=== PATIENT | female | born 1980 | race Caucasian/White ===

== ENCOUNTER 2020-05-24 12:53 | Outpatient (CLI) | payer OTHER, SELFPAY | END 2020-05-24 12:54 | disposition home or self-care (01) | LOC: ANHSURGERY 12:57 | PROVIDERS: PCP Internal Medicine; Visit Provider Obstetrics & Gynecology Gynecology | DX: Z01.818 Encounter for other preprocedural examination (principal); D25.9 Leiomyoma of uterus, unspecified | CPT/HCPCS: 36415; 86850; 86900; 86901 ==

== ENCOUNTER 2020-05-25 01:02 | Outpatient (CLI) | payer OTHER, SELFPAY ==
[2020-05-25 19:18] LABS: SARS-CoV-2 RNA PCR Negative
== END 2020-05-25 01:03 | disposition home or self-care (01) ==
LOC: ANHCOVIDDT 01:02
PROVIDERS: PCP Internal Medicine; Visit Provider Obstetrics & Gynecology Gynecology
DX: Z01.812 Encounter for preprocedural laboratory examination (principal); Z20.828 Contact with and (suspected) exposure to other viral communicable diseases
CPT/HCPCS: 87635; C9803; U0003

== ENCOUNTER 2020-05-28 10:22 | Inpatient (IN) | payer OTHER, SELFPAY ==
[2020-05-21 15:38] VITALS: BMI 43.0
[2020-05-28] VITALS (19 sets, daily range): BP systolic 116–135; BP diastolic 59–78; PULSE 69–103; RESP 11–20; TEMP 36.3–36.9; O2SAT 95–100
[2020-05-28] MEDS: LACTATED RINGERS 1,000 ML 30 ML IV CONT ×3 (06:55→10:35)
[2020-05-28] MEDS: KETOROLAC 15 MG/ML VIAL (*BKC) IV PUSH (06:58)
[2020-05-28] MEDS: ACETAMINOPHEN 500 MG TABLET 1000 MG PO (07:00)
--- NOTE | 2020-05-28 07:23 | PM.IMHP ---
H&P: HPI History of Present Illness Date/Time: 05/28/20 07:23 Chief complaint: Fibroid Uterus Narrative: Stephanie Reyes is a 39 year old female with heavy cycles. Patient was new to my office 04/24/20. On exam, mass noted to fill entire abdominal cavity (measured 32 cm as fundal height ). Pelvic u/s done and showed markedly enlarged fibroid uterus. Office hysteroscopy and biopsy showed benign results. Plan is to proceed with BARAK-BS. Discussed with patient vertical incision will be probably extended quite a bit past her umbilicus due to the size of the uterus. Risks of the surgery were discussed including infection, bleeding, injury to organs (joselito. ovaries, ureters, bowel, and bladder), DVT, and general anesthesia. Patient voiced understanding and agrees to proceed. [facility] Past Medical History Medical History (Updated 05/28/20 @ 07:29 by Rima Mcdonough MD) History of hysteroscopy (normal spontaneous vaginal delivery) x 3 Surgical History Surgical History (Updated 05/28/20 @ 07:28 by Rima Mcdonough MD) Hx laparoscopic cholecystectomy Family History Family History (Updated 12/29/18 @ 11:25 by DOCTOR UNKNOWN) Mother Hypertension Other Family history of gastrointestinal disorder Social History Social History Smoking status: Never smoker Alcohol intake: never Spiritual care concerns: No Meds Home Medications and Allergies Home Medications Medication Instructions Recorded Confirmed Type L. gasseri-B. bifidum-B longum 1 cap PO DAILY 05/21/20 05/21/20 History [facility]] cholecalciferol (vitamin D3) 125 mcg PO DAILY 05/21/20 05/21/20 History [Vitamin D3] ergocalciferol (vitamin D2) 1,250 mcg PO WEEKLY 05/21/20 05/21/20 History [Vitamin D2] Allergies Allergy/AdvReac Type Severity Reaction Status Date / Time No Known Allergies Allergy Unverified 05/28/20 07:30 Exam Const: General: no acute distress Resp: Auscultation: clear to auscultation bilaterally Cardio: Rate: regular rate Rhythm: regular rhythm GI: GI Palp: Yes Firmness to palpation present (GI) Percussion: Yes other (uterus to 32 cm fundal height ) : External Female Exam: normal external appearance Speculum Exam - Vagina: normal appearance of the vagina Speculum Exam - Cervix: normal appearance of the cervix Bimanual exam- vagina & uterus: enlarged (32 cm) Assessment and Plan Assessment and plan (1) Fibroid uterus: Code(s): D25.9 - Leiomyoma of uterus, unspecified Status: Acute Assessment and Plan: Plan to proceed with BARAK-BS.
--- NOTE | 2020-05-28 07:33 | P.PNAN_ITS ---
Anes - Initial Pre Proc Eval Procedure: Operation Date: 05/28/20 08:30 Proposed Procedures p Total Abdominal Hysterectomy With Bilateral Salpingectomy - Rima Mcdonough MD Date/Time: 05/28/20 07:33 Surgeon: Rima Mcdonough MD Pre Op Diagnosis: Fibroid Uterus Patient Data Age: 39 Gender: F Height: 1.52 m Weight: 96.41 kg Allergies Allergy/AdvReac Type Severity Reaction Status Date / Time No Known Allergies Allergy Unverified 05/28/20 07:30 Home Medications Medication Instructions Recorded Confirmed Type L. gasseri-B. bifidum-B longum 1 cap PO DAILY 05/21/20 05/28/20 History [[facility]] cholecalciferol (vitamin D3) 125 mcg PO DAILY 05/21/20 05/28/20 History [Vitamin D3] ergocalciferol (vitamin D2) 1,250 mcg PO WEEKLY 05/21/20 05/28/20 History [Vitamin D2] Patient hx anesthesia problems: none Family hx anesthesia problems: none [facility] Past Medical History Medical History (Updated 05/28/20 @ 07:29 by Rima Mcdonough MD) History of hysteroscopy (normal spontaneous vaginal delivery) x 3 Surgical History Surgical History (Updated 05/28/20 @ 07:28 by Rima Mcdonough MD) Hx laparoscopic cholecystectomy Family History Family History (Updated 12/29/18 @ 11:25 by DOCTOR UNKNOWN) Mother Hypertension Other Family history of gastrointestinal disorder Social History Social History Smoking status: Never smoker Alcohol intake: never Spiritual care concerns: No Anes - Eval Final PreProcedure Day of Procedure 05/28/20 07:33 Patient weight: morbidly obese Heart: regular rate and rhythm Lungs: clear to auscultation and normal air movement Airway: Mallampati scale class II Neurological: alert and oriented Last oral intake: >/= 8 hours ASA classification: III Emergent: no Anesthetic plan: proceed Anesthesia type and monitoring: general ETT and standard monitoring Informed Consent: The patient's anesthetic plan and its attendant risks and benefits were discussed with the patient/family/POA. Questions were solicited and answers provided to the satisfaction of the patient/family/POA.
[2020-05-28] MEDS: ceFAZolin 2 GM/D5W 50 ML 2 GM/50 ML BAG IVPB (08:14)
--- NOTE | 2020-05-28 09:56 | SUR.OPER ---
URINE:175cc
--- NOTE | 2020-05-28 09:57 | SUR.OPER ---
EBL:600cc
--- NOTE | 2020-05-28 10:05 | PM.PROC ---
Procedure Note - Detailed Date of procedure: 05/28/20 Pre-op diagnosis: Fibroid Uterus Post-op diagnosis: same Procedure performed: BARAK-BS Description of procedure: The patient is taken to the operating room and placed under general anesthesia in the dorsal supine position. She is prepped and draped in usual sterile fashion.A vertical skin incision is made from the umbilicus to the symphysis pubis in the midline and carried down the underlying layer of fascia. The fascia was nicked in the midline and extended superiorly and inferiorly. The peritoneum was tented and entered with Metzenbaum scissors. The incision is extended with blunt traction. The uterus is palpated and there is a large approximately 10cm fibroid in the patient's right upper quadrant we are unable to deliver the uterus through the incision. The uterine incision is extended around the umbilicus. The uterus is again attempted to be delivered through the incision and is again unsuccessful. The exit incision is extended approximately 5cm above the umbilicus and the specimen is able to be delivered through the incision. The bowel is packed away using moist laparotomy sponges. The [place] is placed. I performed the left side of the hysterectomy and Dr. Polk performed the right side of the hysterectomy. Starting on the left side the round ligaments are identified there is a fibroid within the round ligament. The 0 Vicryl suture is placed below the fibroid x2 the pedicle was suture ligated and transected. The anterior leaf of the broad ligament is incised. A window was created in the posterior leaf of the broad ligament. The tube is grasped with a [place]. Three pedicles are required to transect the utero-ovarian ligament each pedicle is doubly clamped transected and suture ligated with 0 Vicryl. Attention is then turned to the right side and the round ligament was doubly clamped transected and suture ligated with 0 Vicryl. The window was created in the posterior leaf of the broad ligament the tube is grasped with a [place]. Again 3 pedicles are required to transect the utero-ovarian ligament each pedicle is doubly clamped transected and suture ligated with 0 Vicryl. The uterine vessels on the right are skeletonized. The bladder flap is created using sharp and blunt dissection. The retractors placed anteriorly to help bladder flap back. The right uterine vessels are doubly clamped transected and suture ligated with 0 Vicryl. The attention was returned to the left side where the uterine vessels are doubly clamped transected and suture ligated with 0 Vicryl. The cardinal and uterosacral ligaments are serially clamped doubly, transected, and suture ligated with 0 Vicryl . The uterosacral ligaments were tagged for future use. The vaginal cuff is entered anteriorly with the scalpel. The vaginal cuff was grasped with Allis clamps as the specimen is amputated using Trino scissors. The vaginal cuff was closed using 0 Vicryl in a running locked fashion. Each angle was tied to the ipsilateral uterosacral ligament. Good hemostasis at the cuff is noted. The pelvis is irrigated and the right ovary is noted to have to bleeding vessels. These were clamped and suture ligated. The ovary was observed for good blood flow for several minutes. There was no change in the ovarian color and appeared to have good blood flow. The instruments and sponges are then removed. The fascia is grasped with [facility] is and closed using 0 PDS. The subcutaneous tissues are irrigated and noted to be hemostatic. Bleeding vessels had been previously cauterized at the beginning of the case. The skin is closed using nereyda. Sterile bandage was applied. Sponge instrument and needle counts are correct per the OR staff. Patient did receive Ancef prior to incision. Anesthesia: GETA Surgeon: MD Steve Wright MD Estimated blood loss (mL): 600 Drains: Yes ([place]) Packing: No Pathology: yes (uterus; bilateral tu
--- NOTE | 2020-05-28 10:18 | P.DS_ITS ---
DS: Admitting Diagnosis Admitting Diagnosis Admitting Diagnosis: Fibroid Uterus DS: Discharge Diagnosis Discharge Diagnosis (1) Fibroid uterus: Code(s): D25.9 - Leiomyoma of uterus, unspecified Status: Acute (2) S/P BRAAK (total abdominal hysterectomy): Code(s): Z90.710 - Acquired absence of both cervix and uterus Status: Acute DS: Summary Hospital Course Reason for hospitalization: post op care Hospital Course: patient is tolerating a regular diet, voiding, and ambulating Status at Discharge Functional status at discharge: independent ambulation Overall status at discharge: patient is progressing back to baseline Time Spent with Patient Time attestation: Total time spent providing and/or coordinating discharge services: DS: Data Data Completed and Pending Pending studies at discharge: Pending at discharge 05/28/20 09:37 Surgical [PTH] Routine Discharge Plan Discharge Attending physician on discharge: Rima Mcdonough Discharging Clinician: Rima Mcdonough Patient Disposition: Home, Self-Care Activity: may drive after 2 weeks and pelvic rest Diet: regular Wound Care Instructions: incision open to air Discharge Instructions: pelvic rest x [address] after 2wks no lifting >10 lbs for 6 wks may shower Bring steristrips and staple removal kit 1 week follow up appt. Patient Instructions: Hysterectomy (DC) Stand Alone Forms: General Discharge Instructions Follow-up/Referrals: Rima Mcdonough MD [Physician] - Other (10 days post op bring staple remover and steri-strips with her to appointment) Discharge Medications: New hydrocodone-acetaminophen 5-325 mg Tablet 1 tab PO Q3H PRN (Reason: Pain Rated 5 Or Less) Qty: 30 RF: 0 ibuprofen 600 mg Tablet 600 mg PO Q6H PRN (Reason: Cramping) Qty: 60 RF: 0 Continued ergocalciferol (vitamin D2) [Vitamin D2] 1,250 mcg (50,000 unit) Capsule 1,250 mcg PO WEEKLY RF: 0 cholecalciferol (vitamin D3) [Vitamin D3] 125 mcg (5,000 unit) Tablet 125 mcg PO DAILY RF: 0 [employer] 1.5 billion cell Capsule 1 cap PO DAILY RF: 0 Date of admission: 05/28/20 10:22 Primary Care Provider: GilbertoLeonard Admitting Provider: Rima Mcdonough Discharge Date/Time: 05/30/20 16:11 Attending physician on admission: Steve Polk
--- NOTE | 2020-05-28 11:59 | OBPPTRN ---
Patient transferred to room 289 per bed. Oriented to room and surroundings. Patient verbalizes understanding.
[2020-05-28] MEDS: DEXTROSE 5%/LACTATED RINGERS 1,000 ML 125 ML IV CONT ×2 (12:21→19:45)
[2020-05-29] MEDS: KETOROLAC 30 MG/ML VIAL (*BKC) IV PUSH ×2 (00:08→08:56)
[2020-05-29 04:35] VITALS: BP 106/57; PULSE 79; RESP 14; TEMP 36.8; O2SAT 99
[2020-05-29 04:40] VITALS: RESP 14; O2SAT 99
[2020-05-29 05:31] LABS: Basophils Percent Auto 0.2 % (0.2-1.2); Eosinophils Percent Auto 0.3 % (0-4.4); Hematocrit 28.4 % (37.0-47.0); Hemoglobin 9.3 g/dL (12.0-15.0); Immature Granulocyte Absolute 0.03 K/mm3 (0.00-0.031); Immature Granulocyte Percent A 0.3 % (0-0.5); Lymphocytes Percent Auto 23.1 % (18.3-44.2); Mean Corpuscular HGB Conc 32.7 g/dl (32-36); Mean Corpuscular Hemoglobin 26.9 pg (26-34); Mean Corpuscular Volume 82.1 fl (80-100); Mean Platelet Volume 10.4 fl (7.4-10.4); Monocytes Absolute Auto 0.8 K/mm3 (0.1-0.6); Monocytes Percent Auto 8.2 % (2.6-8.5); Neutrophils Absolute Auto 6.5 K/mm3 (1.3-6.7); Neutrophils Percent Auto 67.9 % (45.5-73.1); Platelet Count Result 242 k/mm3 (150-375); Red Blood Count 3.46 M/mm3 (4.2-5.4); Red Cell Distribution Width 13.2 % (11.5-14.5); White Blood Count 9.5 K/mm3 (4.5-10.0)
--- NOTE | 2020-05-29 08:04 | P.PNAN_ITS ---
Anes - Prog Note Post-Op Date/Time: 05/29/20 08:04 Cardiovascular status: normal Respiratory status: normal Airway patency: baseline Mental status: baseline Post-Op hydration status: normal Vital Signs: Last Vital Signs Temp 36.8 C 05/29/20 04:35 Pulse 79 05/29/20 04:35 Resp 14 05/29/20 04:40 BP 106/57 L 05/29/20 04:35 Pulse Ox 99 05/29/20 04:40 I/O: Intake & Output 05/28/20 05/29/20 05/29/20 23:59 07:59 15:59 Intake Total 1335.25 1099.00 Output Total 675 250 Balance 660.25 849.00 Laboratory Tests 05/29/20 05:10 05/29/20 05:10 WBC 9.5 RBC 3.46 L Hgb 9.3 L Hct 28.4 L MCV 82.1 MCH 26.9 MCHC 32.7 RDW 13.2 Plt Count 242 MPV 10.4 Immature Gran % (Auto) 0.3 Neut % (Auto) 67.9 Lymph % (Auto) 23.1 [place] % (Auto) 8.2 Eos % (Auto) 0.3 Baso % (Auto) 0.2 Lymph # (Auto) 2.20 [place] # (Auto) 0.8 H Eos # (Auto) 0.0 Baso # (Auto) 0.0 Abs Immat Gran (auto) 0.03 Absolute Neuts (auto) 6.5 Absolute Nucleated RBC 0.0 Nucleated RBC % 0.0 Post-procedural complaints: none Patient Feedback: Patient satisfied with anesthetic care.
[2020-05-29 08:20] VITALS: BP 112/64; PULSE 73; RESP 18; TEMP 37.1; O2SAT 95
--- NOTE | 2020-05-29 08:58 | PM.GYNPNOP ---
MAINTENANCE SHOP TECHNICIAN - A/P Postoperative Procedures: Procedures Operation Date: 05/28/20 08:30 Actual Procedures Side Surgeon p Total Abdominal Hysterectomy With Bilateral Salpingectomy Bilateral Riam Mcdonough MD Postoperative day: 1 Postoperative status: doing well Postoperative plan: routine post-op care, ambulate, advance diet and other (still on SALES SERVICE PROFESSIONAL so will calculate oral pain med needs tomorrow) Time Spent With Patient Time: Total time spent is greater than 50% in coordination of care (as documented) at patient's floor/unit and/or counseling patient: Time with patient: less than 15 minutes MAINTENANCE SHOP TECHNICIAN- PN:Subj Post-Op Subjective Date/time seen: 05/29/20 08:58 Subjective: patient reports feeling better and pain is well controlled Exam GI: Other: bandage removed inc c/d/i small bruising at base MAINTENANCE SHOP TECHNICIAN - PN: Obj Data Vital Signs Vital Signs: Vital Signs - 24 hr 05/28/20 10:10 05/28/20 10:25 05/28/20 10:40 Temperature 97.3 F L Pulse Rate 75 83 81 Respiratory Rate 12 14 12 Blood Pressure 119/63 130/74 121/69 Pulse Oximetry 98 98 98 05/28/20 10:55 05/28/20 11:10 05/28/20 11:25 Temperature Pulse Rate 80 77 79 Respiratory Rate 12 11 L 11 L Blood Pressure 120/59 L 127/71 126/78 Pulse Oximetry 96 95 95 05/28/20 11:45 05/28/20 12:22 05/28/20 12:30 Temperature 97.9 F Pulse Rate 81 69 Respiratory Rate 16 18 16 Blood Pressure 125/75 121/65 Pulse Oximetry 97 97 98 05/28/20 13:00 05/28/20 13:30 05/28/20 14:00 Temperature Pulse Rate 78 74 77 Respiratory Rate 16 18 18 Blood Pressure 124/64 123/74 119/73 Pulse Oximetry 99 100 97 05/28/20 14:20 05/28/20 15:00 05/28/20 15:20 Temperature Pulse Rate 79 Respiratory Rate 18 20 18 Blood Pressure 116/70 Pulse Oximetry 98 98 98 05/28/20 16:20 05/28/20 19:15 05/28/20 23:15 Temperature 98.1 F 98.5 F Pulse Rate 86 103 H Respiratory Rate 18 15 14 Blood Pressure 120/75 133/75 Pulse Oximetry 97 98 98 05/29/20 04:35 05/29/20 04:40 Temperature 98.2 F Pulse Rate 79 Respiratory Rate 14 14 Blood Pressure 106/57 L Pulse Oximetry 99 99 Intake/Output Intake/Output: Intake & Output 05/26/20 05/27/20 05/28/20 05/29/20 23:59 23:59 23:59 23:59 Intake Total 2935.25 1099.00 Output Total 735 250 Balance 2200.25 849.00 Meds/Results Medications: Active Medications Generic Name Dose Route Start Last Admin Trade Name Freq PRN Reason Stop Dose Admin Hydrocodone Bitart/Acetaminophen 1 tab 05/28/20 10:22 [place] 5-325 Mg PO Q3H PRN Pain Rated 5 or Less Hydrocodone Bitart/Acetaminophen 1 tab 05/28/20 10:22 05/29/20 04:44 [place] 10-325 Mg PO 1 tab Q3H PRN Administration Pain Rated 6 or Greater Dextrose/Lactated Ringer's 1,000 mls @ 125 mls/hr 05/28/20 10:25 05/29/20 04:00 Dextrose 5%/Lactated Ringers IV CONT Infused .Q8H DORY Infusion Ibuprofen 600 mg 05/28/20 10:22 Motrin PO Q6H PRN Cramping Ketorolac Tromethamine 30 mg 05/28/20 10:22 05/29/20 00:08 Toradol Inj IV PUSH 06/02/20 10:23 30 mg Q6H PRN Administration Pain Rated 4-6 Ondansetron HCl 4 mg 05/28/20 10:22 Zofran Inj IV PUSH Q6H PRN Nausea Simethicone 80 mg 05/28/20 10:22 Mylicon PO Q2H PRN Gas Labs CBC & Chem 7: 05/29/20 05:10 Labs: Laboratory Results - last 24 hr 05/29/20 05:10 WBC 9.5 RBC 3.46 L Hgb 9.3 L Hct 28.4 L MCV 82.1 MCH 26.9 MCHC 32.7 RDW 13.2 Plt Count 242 MPV 10.4 Immature Gran % (Auto) 0.3 Neut % (Auto) 67.9 Lymph % (Auto) 23.1 [place] % (Auto) 8.2 Eos % (Auto) 0.3 Baso % (Auto) 0.2 Lymph # (Auto) 2.20 [place] # (Auto) 0.8 H Eos # (Auto) 0.0 Baso # (Auto) 0.0 Abs Immat Gran (auto) 0.03 Absolute Neuts (auto) 6.5 Absolute Nucleated RBC 0.0 Nucleated RBC % 0.0
[2020-05-29] MEDS: IBUPROFEN 600 MG TABLET PO ×2 (14:25→20:06)
[2020-05-29 15:30] VITALS: BP 121/66; PULSE 79; RESP 16; TEMP 36.6; O2SAT 99
[2020-05-29 20:05] VITALS: BP 122/67; PULSE 88; RESP 16; TEMP 36.6; O2SAT 99
[2020-05-30 09:15] VITALS: BP 123/79; PULSE 79; RESP 18; TEMP 36.8; O2SAT 99
--- NOTE | 2020-05-30 10:43 | PM.GYNPNOP ---
BANQUET WAITER/WAITRESS - A/P Assessment and plan (1) S/P BARAK (total abdominal hysterectomy): Code(s): Z90.710 - Acquired absence of both cervix and uterus Status: Acute Assessment and Plan: will d/c home with prn pain meds. f/u 1 week for incision check. Postoperative Procedures: Procedures Operation Date: 05/28/20 08:30 Actual Procedures Side Surgeon p Total Abdominal Hysterectomy With Bilateral Salpingectomy Bilateral Rima Mcdonough MD Time Spent With Patient Time: Total time spent is greater than 50% in coordination of care (as documented) at patient's floor/unit and/or counseling patient: Time with patient: less than 15 minutes BANQUET WAITER/WAITRESS- PN:Subj Post-Op Subjective Date/time seen: 05/30/20 10:43 Patient doing well. some pain this am no meds yet. tolerating diet positive flatus patient ambulating well and pain controlled with meds. Exam GI: Other: incision clean dry and intact. Ecchymosis present BANQUET WAITER/WAITRESS - PN: Obj Data Vital Signs Vital Signs: Vital Signs - 24 hr 05/29/20 15:30 05/29/20 20:05 05/30/20 09:15 Temperature 36.6 C 36.6 C 36.8 C Pulse Rate 79 88 79 Respiratory Rate 16 16 18 Blood Pressure 121/66 122/67 123/79 Pulse Oximetry 99 99 99 Intake/Output Intake/Output: Intake & Output 05/27/20 05/28/20 05/29/20 05/30/20 23:59 23:59 23:59 23:59 Intake Total 2935.25 1739.00 Output Total 735 770 Balance 2200.25 969.00 Meds/Results Medications: Active Medications Generic Name Dose Route Start Last Admin Trade Name Freq PRN Reason Stop Dose Admin Hydrocodone Bitart/Acetaminophen 1 tab 05/28/20 10:22 05/29/20 20:06 [place] 5-325 Mg PO 1 tab Q3H PRN Administration Pain Rated 5 or Less Hydrocodone Bitart/Acetaminophen 1 tab 05/28/20 10:22 05/30/20 09:04 [place] 10-325 Mg PO 1 tab Q3H PRN Administration Pain Rated 6 or Greater Ibuprofen 600 mg 05/28/20 10:22 05/29/20 20:06 Motrin PO 600 mg Q6H PRN Administration Cramping Ketorolac Tromethamine 30 mg 05/28/20 10:22 05/29/20 08:56 Toradol Inj IV PUSH 06/02/20 10:23 30 mg Q6H PRN Administration Pain Rated 4-6 Ondansetron HCl 4 mg 05/28/20 10:22 Zofran Inj IV PUSH Q6H PRN Nausea Simethicone 80 mg 05/28/20 10:22 Mylicon PO Q2H PRN Gas Labs CBC & Chem 7: 05/29/20 05:10
[2020-05-30] MEDS: SIMETHICONE 80 MG TAB.CHEW PO (13:28)
[2020-05-30] MEDS: IBUPROFEN 600 MG TABLET PO (13:28)
== END 2020-05-30 16:11 | disposition home or self-care (01) | DRG 742 ==
LOC: ANHOB2 11:23
PROVIDERS: Admitting Provider Obstetrics & Gynecology Gynecology; PCP Internal Medicine; Visit Provider Obstetrics & Gynecology
PROC: 0UT94ZZ Resection of Uterus, Percutaneous Endoscopic Approach (ICD-10-PCS; principal; 2020-05-28 08:30)
DX: D25.9 Leiomyoma of uterus, unspecified (principal); Z68.41 Body mass index [BMI] 40.0-44.9, adult; Z90.49 Acquired absence of other specified parts of digestive tract; E66.01 Morbid (severe) obesity due to excess calories
CPT/HCPCS: 36415; 85025; 88307; A9270; J0690; J1100; J1170; J1885; J2250; J2405; J2704; J2710; J3010; J7120; J7121

== ENCOUNTER 2023-08-29 12:05 | Emergency (ER) | payer BC, SELFPAY ==
[2023-08-29 12:25] VITALS: BP 131/97; PULSE 85; RESP 16; TEMP 37; O2SAT 99
--- NOTE | 2023-08-29 12:27 | ED.URI ---
HPI - URI/Sore Throat General Chief Complaint: Upper Respiratory Infection Stated Complaint: cough Time Seen by Provider: 08/29/23 12:27 Source: patient, RN notes reviewed and old records reviewed Mode of arrival: ambulatory Limitations: no limitations History of Present Illness HPI Narrative: 42-year-old female presents to [facility] with complete scratchy throat and cough that started on Thursday. Patient states sore throat is mild but cough is worsening. Patient denies fevers shortness of breath, headaches, myalgia. Patient is not taking any for symptoms. MD elicited complaint: cough and sore throat Onset (ago): day(s) (4) Related Data Home Medications Medication Instructions Recorded Confirmed Lactobacills gasseri-Bifidobac 1 cap PO DAILY 05/21/20 05/28/20 bifidum,longum 1.5 billion cell capsule ([employer]) cholecalciferol (vitamin D3) 125 125 mcg PO DAILY 05/21/20 05/28/20 mcg (5,000 unit) tablet (Vitamin D3) ergocalciferol (vitamin D2) 1,250 1,250 mcg PO WEEKLY 05/21/20 05/28/20 mcg (50,000 unit) capsule (Vitamin D2) Allergies Allergy/AdvReac Type Severity Reaction Status Date / Time No Known Allergies Allergy Unverified 05/28/20 07:30 Review of Systems Constitutional: Constitutional: Reports no additional constitutional complaints, Denies chills, Denies fatigue and Denies fever(s) Eyes: Eyes: Reports no additional eye complaints ENT: Reports as per HPI and Reports sore throat Cardiovascular: Cardiovascular: Reports no additional cardiovascular complaints Respiratory: Respiratory: Reports as per HPI, Reports no additional respiratory complaints and Reports cough Neurologic: Reports system reviewed and no additional complaints, except as documented [facility] Past Medical History Medical History Calculus of gallbladder with acute cholecystitis without obstruction Encounter for surgical aftercare following surgery on the digestive system (normal spontaneous vaginal delivery) x 3 Surgical History Surgical History History of hysteroscopy Hx laparoscopic cholecystectomy Family History Family History Mother Hypertension Other Family history of gastrointestinal disorder Social History Social History Smoking status: Never smoker Alcohol intake: never Spiritual care concerns: No Comments At the time of my signature, I reviewed and agree with the nursing past medical, surgical, social, and family history. There is no relevant family history pertinent to the patient complaint. Exam Const: General: cooperative, healthy appearing, no acute distress and well nourished Nutritional Appearance: well nourished Orientation/consciousness: patient oriented x3 Limitations: no limitations HENMT: Head: normal to inspection and normocephalic Ears: external ears normal, TM's normal bilaterally, mastoids normal and Abnormal EAC present Face/Nose/Sinus: normal facial exam Face and sinus: normal facial exam Mouth: Yes Normal oral and palatal mucosa present, Yes oropharynx normal and Yes moist mucous membranes Throat: posterior oropharynx normal, tonsils normal, uvula midline and no uvular edema Eyes: General: appearance normal, both eyes and all related structures Sclera: sclerae normal Pupils: Equal, round and reactive pupils present Resp: Effort & Inspection: normal respiratory effort, able to speak in complete sentences, no audible wheezes, no cough, no respiratory distress and no retractions Auscultation: clear to auscultation bilaterally, no crackles, no rales, no rhonchi and no wheezes Cardio: Rate: regular rate Rhythm: regular rhythm Skin: General skin exam: normal color and no rashes or lesions noted Neuro: [facility]: [facility]
== END 2023-08-29 12:45 | disposition home or self-care (01) ==
PROVIDERS: Nurse Practitioner; Emergency Provider Registered Nurse; PCP Internal Medicine
DX: J00 Acute nasopharyngitis [common cold] (principal); Z20.822 Contact with and (suspected) exposure to COVID-19
CPT/HCPCS: 87081; 87426; 87880; 99203; C9803; G0463

== ENCOUNTER 2023-09-06 09:46 | Emergency (ER) | payer BC, SELFPAY ==
[2023-09-06 10:05] VITALS: BP 161/108; PULSE 91; RESP 16; TEMP 36.3; O2SAT 96
--- NOTE | 2023-09-06 10:40 | ED.URI ---
HPI - URI/Sore Throat General Chief Complaint: Upper Respiratory Infection Stated Complaint: COUGH/SOB/EARACHE Time Seen by Provider: 09/06/23 10:41 Source: patient, RN notes reviewed and old records reviewed Mode of arrival: ambulatory Limitations: no limitations History of Present Illness HPI Narrative: 42 year old female who presents to [facility] with complaints of coughing fit with feeling short of breath this morning. Patient reports that she was seen in the clinic last Thursday and tested for COVID and strep that were both negative.Patient denies any present dyspnea. Patient reports that she has left ear discomfort feels clogged and she can hear her heartbeat in her ear. Patient reports that she has been taking Mucinex and also Delsym for her symptoms. MD elicited complaint: cough and other (earache) Pertinent past history: other (cough) Onset (ago): day(s) (1 day left ear) Severity: mild Able to tolerate fluids by mouth: Yes Treatments prior to arrival: other (Delsym, Mucinex) Related Data Allergies Allergy/AdvReac Type Severity Reaction Status Date / Time No Known Allergies Allergy Verified 09/06/23 10:00 Review of Systems Review of Systems: CONSTITUTIONAL: Denies malaise, chills, sweats, or fever. EYES: Denies visual changes, redness, or discharge. ENT: Reports rhinorrhea, congestion, sinus pain,left otalgia and no sore throat. CARDIOVASCULAR: Denies chest pain, palpitations, or edema. RESPIRATORY: Reports cough.? Denies any present dyspnea. GASTROINTESTINAL: Denies abdominal pain, nausea, vomiting, diarrhea SKIN: Denies rash or itching. MUSCULOSKELETAL: Denies myalgia. NEUROLOGIC: Denies headache. All systems reviewed & are unremarkable except as noted in HPI and below PMFSH Past Medical History Medical History Calculus of gallbladder with acute cholecystitis without obstruction Encounter for surgical aftercare following surgery on the digestive system (normal spontaneous vaginal delivery) x 3 Surgical History Surgical History History of hysteroscopy Hx laparoscopic cholecystectomy Family History Family History Mother Hypertension Other Family history of gastrointestinal disorder Social History Social History Smoking status: Never smoker Alcohol intake: never Spiritual care concerns: No Comments At time of signature, agree with nursing past medical, surgical, social and family history. There is no relevant family history pertinent to the presenting complaint Exam Narrative: GENERAL: Well-appearing, well-nourished, and in no acute distress. HEAD: Normocephalic EYES: PERRLA, conjunctivae clear ENT: Nares clear, turbinates edematous and erythematous, clear discharge. Mucous membranes moist. TM pearly sweet with dull light reflex bilaterally; no tragal tenderness. Oropharynx erythematous without lesions. Tonsils not enlarged and without exudate, no drooling, no hoarseness, no trismus, uvula midline.post nasal drainage NECK: Supple. No lymphadenopathy CHEST: Clear to auscultation, breath sounds equal. No wheezing, rhonchi, rales, or stridor. No respiratory distress, speaks in full sentences.cough notd SAO2 96% on room air, no tachypnea HEART: Regular rate and rhythm. No murmur heard. SKIN: Warm, dry, no rash. NEURO: Alert and oriented x3. PSYCH: Normal mood and affect Course Course Emergency Course: Patient is aware of diagnosis, understands and agrees to treatment plan.? Anticipatory guidance given.? Patient agrees to follow-up as directed and is aware of reasons to seek care at the emergency department. Portions of this record may have been created with voice recognition software Level of Care: Express Care Visit Vital Sig
== END 2023-09-06 11:02 | disposition home or self-care (01) ==
PROVIDERS: Emergency Provider Registered Nurse; PCP Internal Medicine
DX: R05.1 Acute cough (principal); J06.9 Acute upper respiratory infection, unspecified
CPT/HCPCS: 99213; G0463